=== PATIENT | female | born 1985 | race Caucasian/White ===

== ENCOUNTER 2024-06-24 07:06 | Outpatient (RCR) | payer OTHER, SELFPAY | END 2024-06-24 23:59 | disposition home or self-care (01) | LOC: RPT 07:06 | PROVIDERS: ATTENDING PHYSICIAN Internal Medicine | DX: M62.89 Other specified disorders of muscle (principal); N81.84 Pelvic muscle wasting; Z73.6 Limitation of activities due to disability | CPT/HCPCS: 97162; 97530 ==

== ENCOUNTER 2024-07-20 13:06 | Outpatient (RCR) | payer OTHER, SELFPAY | END 2024-07-20 23:59 | disposition home or self-care (01) | LOC: RPT 13:06 | PROVIDERS: ATTENDING PHYSICIAN Internal Medicine | DX: M62.89 Other specified disorders of muscle (principal); N81.84 Pelvic muscle wasting; Z73.6 Limitation of activities due to disability | CPT/HCPCS: 97112; 97530 ==

== ENCOUNTER 2024-08-26 13:06 | Outpatient (RCR) | payer OTHER, SELFPAY | END 2024-08-26 23:59 | disposition home or self-care (01) | LOC: RPT 13:06 | PROVIDERS: ATTENDING PHYSICIAN Internal Medicine | DX: M62.89 Other specified disorders of muscle (principal); N81.84 Pelvic muscle wasting; Z73.6 Limitation of activities due to disability | CPT/HCPCS: 97110; 97112 ==

== ENCOUNTER 2025-09-15 15:25 | Emergency (ER) | payer OTHER, SELFPAY ==
[2025-09-15 15:42] VITALS: BP 129/71
[2025-09-15 17:10] LABS: Hematocrit 38.3 % (37.0-47.0); Hemoglobin 13.2 g/dL (12.0-16.0); Mean Corp Hgb Conc. 34.5 g/dL (33.0-37.0); Mean Corpuscular Volume 90.3 fL (81.0-99.0); Nucleated Red Blood Cells % 0 %; Platelet Count 351 10^3/uL (130-400); Red Cell Dist. Width 11.7 % (11.5-14.5)
--- NOTE | 2025-09-15 17:30 | ED.GENMED ---
History of Present Illness
General
Chief Complaint: Vaginal Bleeding
Source: patient
Exam Limitations: none
Time Seen by Provider: 09/15/25 17:29
Nursing documentation reviewed up to this point in time: agreed with
History of Present Illness
History of Present Illness:
39-year-old female, 6-1/2-week presents for mild vaginal spotting. Denies abdominal pain/cramping. Denies fever or chills. Denies CP or SOB.
Past History
Past History
ED Past Medical History: None
ED Past Surgical History: Gynecological
Review of Systems
Review of Systems
Allergies reviewed?: Yes
All Other Systems: ROS reviewed and negative except as documented in HPI and ROS
Phy Exam
Physical Exam
Physical Exam:
GENERAL: No acute distress. A&Ox3.
CONSTITUTIONAL: Afebrile.
EYES: clear, conjunctivae normal
ENMT: moist mucus membranes
RESPIRATORY: Regular respirations, nonlabored, lungs clear.
CARDIOVASCULAR: Regular rate and rhythm, no murmurs, no rubs.
GI: Soft, nontender, normal BS
MUSCULOSKELETAL: Moves with ease. Well perfused.
SKIN: Warm, dry, pink
PSYCH: Normal mood and affect. Well kept, interactive and appropriate
NEUROLOGIC: Awake, alert and oriented. No focal neurological deficits
Course
Orders/Labs/Results
Orders:
Orders
09/15/25 16:03
US 1st Trimester Urgent
Comment:
Reason For Exam: spotting, 6 1/2 weeks
09/15/25 17:01
Complete Blood Count/With Diff Urgent
Comprehensive Metabolic Panel Urgent
HCG, Beta Quantitative [Beta HCG Quantitative] Urgent
Is this a screen?: No
Abnormal Lab Results
09/15/25
17:01
MCH 31.1 H pg
(27.0-31.0)
Absolute Neuts (auto) 7.3 H 10^3/uL
(1.4-6.5)
Absolute Monos (auto) 0.7 H 10^3/uL
(0.1-0.6)
Sodium 134 L mmol/L
(135-145)
Glucose 107 H mg/dl
(70-99)
09/15/25 17:01
09/15/25 17:01
Vital Signs
Initial and Last Documented VS:
Initial Vital Signs
Temp Pulse Resp BP Pulse Ox
97.8 F 76 18 129/71 99
09/15/25 15:42 09/15/25 15:42 09/15/25 15:42 09/15/25 15:42 09/15/25 15:42
Last Documented Vital Signs
Temp Pulse Resp BP Pulse Ox
97.8 F 76 18 129/71 99
09/15/25 15:42 09/15/25 15:42 09/15/25 15:42 09/15/25 15:42 09/15/25 17:35
MDM/Problems Addressed
Differential Diagnosis Includes:
Bleeding in early , subchorionic hemorrhage, threatened miscarriage
MDM/Problems Addressed:
39-year-old female, 6-1/2-week presents for mild vaginal spotting. Denies abdominal pain/cramping. Denies fever or chills. Denies CP or SOB.
Lab results are unremarkable
Ultrasound radiology report read: Single live intrauterine with a sonographic mean gestational age of 7 weeks based on the crown-rump length measurement. Heartbeat 153 no subchorionic hemorrhage
Patient given a copy of the ultrasound report.
*Pulse Oximetry
SaO2: 99
Oxygen Mode of Delivery: Room air
Patient hypoxic: no
*Critical Care Note
Total Time (30-74mins, 75-104mins- exclusive of procedures): Not Applicable
ED Attending Note
-
Portions of this chart may have been created with voice recognition software.� Occasional wrong word or��sound alike� substitutions may have occurred due to the inherent limitations of voice recognition software.
Discharge Plan
Departure
Patient Disposition: Home (Routine Discharge)
Date of Disposition: 09/15/25
Time of Disposition: 17:43
Patient with high blood pressure during this ER visit?: No
Condition: Good
Discharge Problem:
Bleeding in early
Instructions: Bleeding in early (DC)
Prescriptions:
No Action
PNV,calcium [id number] acid [ Vitamin Plus Low Iron] 1 TABLET tablet
1 tab PO DAILY
ascorbic acid (vitamin C) [Vitamin C] 1,000 MG tablet
1,000 mg PO DAILY
echinacea 125 MG capsule
1 tab PO DAILY
L.acidoph,paracasei,B.animalis 1 EACH capsule
1 ea PO DAILY
acetaminophen 325 MG tablet
650 mg PO Q4HPRN PRN (Reason: mild pain) 0RF
elderberry fruit and flower 1 EACH capsule
2 ea PO DAILY
Referrals:
[facility] [Other] - Keep scheduled appt
Activity Restrictions/Additional Instructions:
As we discussed, this may simply be mild bleeding in early which is not unusual, nothing worrisome in your ultrasound. Your blood work is fine. Keep your appointment in 2 weeks.
Return here immediately for worsening abdominal cramping or worsening vaginal bleeding
Interventions
Interventions:
*Risk Screen - Suicide Last Done: 09/15/25 15:42
*General Assessment Last Done: 09/15/25 15:42
*Neglect/Abuse Screening Last Done: 09/15/25 15:42
*ED COVID-19 Vaccine History Last Done: 09/15/25 15:42
*ED Influenza Vaccine History Last Done: 09/15/25 15:42
[facility] Fall Risk Assessment Tool Last Done: 09/15/25 17:55
*Nursing Disposition Last Done: 09/15/25 17:55
ED-Female Genitourinary Assessment Last Done: 09/15/25 17:56
Discharge Date and Time
Discharge Date/Time: 09/15/25 17:56
Print Language: [place]
[2025-09-15 17:36] LABS: ALT (SGPT) 14 U/L (0-35); AST (SGOT) 20 U/L (14-36); Albumin 4.2 g/dl (3.5-5.0); Alkaline Phosphatase 51 U/L (38-126); Blood Urea Nitrogen 12 mg/dl (7-17); Calcium 9.5 mg/dl (8.4-10.2); Carbon Dioxide 23 mmol/L (22-30); Chloride 103 mmol/L (98-107); Glucose 107 mg/dl (70-99); Potassium 4.0 mmol/L (3.5-5.1); Sodium 134 mmol/L (135-145); Total Protein 7.3 g/dl (6.3-8.2); eGFR > 60.00
== END 2025-09-15 17:56 | disposition home or self-care (01) ==
LOC: EMR 15:25
PROVIDERS: Emergency Medicine; EMERGENCY PHYSICIAN Emergency Medicine; FAMILY PHYSICIAN Nurse Practitioner Adult Health
DX: O26.851 Spotting complicating pregnancy, first trimester (principal); Z3A.01 Less than 8 weeks gestation of pregnancy
CPT/HCPCS: 99284; 76801; 80053; 84702; 85025